=== PATIENT | female | born 2000 | race Caucasian/White ===

== ENCOUNTER 2021-02-19 06:36 | Emergency (ER) | payer OTHER ==
[2021-02-19 07:10] LABS: BASOPHIL 0.8 % (0-2); EOSINOPHIL 1.8 % (0-5); HCT 42.8 % (37.0-47.0); HGB 14.2 g/dl (12.5-16.0); LYMPHOCYTE 23.1 % (15-48); MCH 28.2 pg (25.0-31.0); MCHC 33.2 g/dL (32.0-36.0); MCV 84.9 fL (78.0-100.0); MONOCYTE 10.6 % (0-12); MPV 8.9 fL (6.0-9.5); NEUTROPHIL 63.4 % (41-80); NRBC 0; PLT 385 K/uL (150-400); RBC 5.04 M/uL (4.20-5.40); RDW 13.2 % (11.5-14.0); WBC 8.8 K/uL (4.0-10.5)
[2021-02-19 07:26] LABS: ALBUMIN 3.7 g/dL (3.4-5.0); BILIRUBIN - TOTAL 0.2 mg/dL (0.2-1.0); BUN/CREAT RATIO (CALC) 16.1 RATIO; CREATININE 0.62 mg/dL (0.51-0.95); TOTAL PROTEIN 7.7 g/dL (6.4-8.2)
[2021-02-19 09:30] LABS: BILIRUBIN NEGATIVE (NEGATIVE); BLOOD NEGATIVE Ery/uL (NEGATIVE); CLARITY CLEAR (CLEAR); COLOR YELLOW (YELLOW); GLUCOSE (U) NORMAL (NORMAL); LEUKOCYTES NEGATIVE Leu/uL (NEGATIVE); NITRITE NEGATIVE (NEGATIVE); PROTEIN NEGATIVE (NEGATIVE); UROBILINOGEN 0.2 mg/dL (0.2-1.0)
[2021-02-19] MEDS ORDERED: NAPROXEN500 MG PO (09:48)
== END 2021-02-19 10:28 | disposition home or self-care (01) ==
LOC: FER 06:36
PROVIDERS: Emergency Medicine Emergency Medical Services
DX: R10.31 Right lower quadrant pain (principal)
CPT/HCPCS: 36415; 74022; 80053; 81003; 83690; 85025